=== PATIENT | female | born 1995 | race Two or more races ===

== ENCOUNTER → 2017-10-10 | Outpatient (CLI) | payer OTHER ==
--- NOTE | 2017-10-11 13:59 | RADIOLOGY REPORT (SQ) ---
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 Orally administered ADDITIONAL DRUGS AND DOSES: None. TECHNIQUE: Iodine uptake was measured at 4 and 24 hours. Images of the neck were acquired. LIMITATIONS: None. FINDINGS: 4 HOUR UPTAKE RADIO-IODINE: 18.9%. Normal Range of 5-20% [facility] Normal Range of 5-15% [facility] Normal Range of 5-15% [facility] 24 HOUR UPTAKE RADIO-IODINE: 27%. Normal Range of 7-35% [facility] Normal Range of 8-35% [facility] Normal Range of 15-30% [facility] SCAN: There is a hyperfunctioning nodule along the lower pole right thyroid, a least 2.5 cm in size. Remainder of the gland demonstrates minimal uptake. OTHER: No other significant finding. IMPRESSION: Hyperfunctioning nodule right lower pole thyroid Elevated 4 hour uptake of radioiodine, borderline elevated 24 hour uptake of radioiodine TECHNICAL DOCUMENTATION: JOB ID: [id number] [employer] About [employer]- All Rights Reserved
== END ==
LOC: RAD 08:05
PROVIDERS: ATTEND Nurse Practitioner Family
DX: E05.90 Thyrotoxicosis, unspecified without thyrotoxic crisis or storm (principal); E04.1 Nontoxic single thyroid nodule
CPT/HCPCS: 78014; A9516